=== PATIENT | male | born 1985 | race Caucasian/White ===

== ENCOUNTER 2017-01-28 15:00 | Emergency (ER) | payer OTHER ==
[2017-01-28] MEDS ORDERED: LIDOCAINE HCL 1% MPF SOL ONE (15:11)
[2017-01-28 15:27] VITALS: RESP 16; TEMP 98
[2017-01-28] MEDS ORDERED: TDAP VACCINE 0.5 ML SUS IM ONE ×2 (15:49→15:51)
[2017-01-28 16:25] VITALS: BP 116/61; PULSE 81; O2SAT 96
== END 2017-01-28 16:04 | disposition home or self-care (01) | DRG 605 ==
LOC: ED 15:00
DX: S61.210A Laceration without foreign body of right index finger without damage to nail, initial encounter (principal); W25.XXXA Contact with sharp glass, initial encounter; Y93.89 Activity, other specified; Y99.0 Civilian activity done for income or pay
CPT/HCPCS: 29130; 90471; 90715; 99284; J2001